=== PATIENT | female | born 1990 | race African-American/Black ===

== ENCOUNTER 2016-09-08 19:37 | Emergency (ER) | payer SELFPAY ==
[~2016-09-08] VITALS: Ht 170.2 cm; Wt 75.0 kg
[~2016-09-08 19:37] MED LIST: HYDR-3927
[2016-09-08 19:39] VITALS: BP 122/75
== END 2016-09-08 20:20 | disposition left against medical advice (07) ==
LOC: ER 19:47
DX: Z53.21 Procedure and treatment not carried out due to patient leaving prior to being seen by health care provider (principal)

== ENCOUNTER 2023-07-20 15:05 | Emergency (ER) | payer MEDICAID ==
[~2023-07-20] VITALS: Ht 172.7 cm; Wt 91.0 kg
[2023-07-20 15:07] VITALS: O2SAT 98
[2023-07-20] MEDS: TETANUS, DIPHTHERIA, PERTUSSIS VAC/PF 0.5ML (>10YR OLD) IM ONE (15:59)
[2023-07-20] MEDS ORDERED: CEPH500T MT (16:08)
[2023-07-20 16:49] VITALS: BP 105/64; PULSE 88; RESP 18; TEMP 97.8
== END 2023-07-20 17:00 | disposition home or self-care (01) ==
LOC: ER 15:05
DX: L02.416 Cutaneous abscess of left lower limb (principal); I10 Essential (primary) hypertension; F12.10 Cannabis abuse, uncomplicated
CPT/HCPCS: 10060; 81025; 90471; 90715; 99283

== ENCOUNTER 2024-02-24 20:01 | Emergency (ER) | payer MEDICAID ==
[~2024-02-24] VITALS: Ht 162.6 cm; Wt 69.0 kg
[~2024-02-24 20:01] MED LIST changes: +CEPH500T MT
[2024-02-24 20:05] VITALS: BP 152/101; PULSE 88; RESP 17; TEMP 98.5; O2SAT 100
[2024-02-24 22:15] LABS: BASOPHILS % 0.4 % (0.0-2.0); EOSINOPHILS % 0.7 % (0.0-5.0); HEMATOCRIT. 39.8 % (36.0-48.0); HEMOGLOBIN. 13.1 g/dL (12.0-16.0); LYMPHOCYTES % 11.8 % (20.0-50.0); MEAN PLATELET VOLUME 8.6 fl (7.4-10.4); MONOCYTES % 7.7 % (2.0-8.0); NEUTROPHILS % 79.4 % (40.0-76.0); PLATELET 302 x1000/uL (130-400); RED BLOOD CELL COUNT 4.23 mill/uL (4.2-5.4); RED CELL DISTRIBUTION WIDTH 12.8 % (11.6-14.6); WHITE BLOOD COUNT 11.5 x1000/uL (4.5-11.0)
[2024-02-24 22:21] LABS: CHLORIDE 104 mEq/L (98-107); POTASSIUM 3.9 mEq/L (3.5-5.1); SODIUM 139 mEq/L (136-145)
[2024-02-24 22:22] LABS: CARBON DIOXIDE 29 mEq/L (21-32)
[2024-02-24 22:23] LABS: CALCIUM 9.6 mg/dL (8.7-10.4)
[2024-02-24 22:27] LABS: CREATININE 0.9 mg/dL (0.6-1.0); GLUCOSE 122 mg/dL (70-105); UREA NITROGEN BLOOD 8 mg/dL (9-23)
[2024-02-24 22:45] LABS: HCG SCREEN NEGATIVE
[2024-02-25] MEDS ORDERED: KETOROLAC 30MG/ML VIAL IM ONE
[2024-02-25 00:25] LABS: CLARITY URINE TURBID (CLEAR); COLOR URINE YELLOW (YELLOW); GLUCOSE URINE NEGATIVE (NEGATIVE); KETONES URINE NEGATIVE (NEGATIVE); LEUKOCYTE ESTERASE URINE 3+ (NEGATIVE); NITRITE URINE POSITIVE (NEGATIVE); OCCULT BLOOD URINE 2+ (NEGATIVE); PH URINE 5.5 (4.5-8.0); PROTEIN URINE 2+ (NEGATIVE); SPECIFIC GRAVITY URINE 1.013 (1.005-1.030)
[2024-02-25 00:51] LABS: SQUAMOUS EPITHELIAL CELL URINE 1+ /lpf (RARE/1+); WBC URINE TNTC /hpf (0-2)
[2024-02-25 00:53] LABS: BACTERIA URINE 1+; RBC URINE 15-25 /hpf (0-2)
[2024-02-25] MEDS ORDERED: IBUP-2029 MT (01:26)
[2024-02-25] MEDS ORDERED: NITR-87 MT (01:26)
[2024-02-25] MEDS ORDERED: KETOROLAC 30MG/ML VIAL IM NR (02:00)
== END 2024-02-25 02:09 | disposition home or self-care (01) ==
LOC: ER 20:01
DX: N39.0 Urinary tract infection, site not specified (principal); I10 Essential (primary) hypertension; F12.90 Cannabis use, unspecified, uncomplicated
CPT/HCPCS: 80048; 82962; 84703; 85025; 36415; 99283; 81003; 87086; 87186; 87077; Z7610; J1885